=== PATIENT | female | born 1970 | race African-American/Black ===

== ENCOUNTER → 2019-05-01 12:19 | Outpatient (CLI) | payer BC ==
[~2019-05-01 12:19] MED LIST: ALBUTEROL SULF8.5 GM INH; ALBUTEROL2.5 MG/3 M INH; BREO ELLIPTA 11 EACH; CATAPRES TTS-20.2 MG TRANSDERM; CELEXA20 MG PO; COZAAR100 MG PO; FERROUS SULFAT325 MG PO; MUCINEX DM ER1 EAC1 PO; NORVASC10 MG PO; OMNICEF300 MG PO; PREDNISONE5 MG; SINGULAIR10 MG PO; TESSALON PERLE100 MG PO; TOPROL XL100 MG PO; VIBRAMYCIN 100100 MG PO
[2019-05-19 14:01] VITALS: BMI 54.7
== END | disposition home or self-care (01) ==
LOC: D.CT 12:19
PROVIDERS: ATTEND Nurse Practitioner Family
DX: I65.29 Occlusion and stenosis of unspecified carotid artery (principal)

== ENCOUNTER 2019-05-11 17:28 | Emergency (ER) | payer BC ==
[2019-05-11 17:36] VITALS: Wt 158.6 kg
[2019-05-11 18:12] LABS: BASOPHILS 0.3 % (0-2); HEMATOCRIT 33.5 % (36.0-48.0); HEMOGLOBIN 10.7 g/dL (12-16); IMMATURE GRANULOCYTES 0.4 % (0-5); LYMPHOCYTES 12.8 % (15-50); MCH 29.5 pg (26.0-34.0); MCHC 31.9 g/dL (31.0-37.0); MCV 92.3 fL (80.0-100.0); MEAN PLATELET VOLUME 8.9 fL (7.4-10.4); MONOCYTES 11.9 % (2-11); NEUTROPHILS 73.6 % (40-80); PLATELET COUNT 325 10x3/uL (130-400); RBC 3.63 10x6/uL (4.00-5.40); RDW 15.1 % (11.5-14.5); WBC 7.8 10x3/uL (4.8-10.8)
[2019-05-11 18:23] LABS: CALC OSMOLALITY 274 mosm/kg (275-300); CALCIUM 7.9 mg/dL (8.5-10.1); CARBON DIOXIDE 26.8 mmol/L (21.0-32.0); CHLORIDE - SERUM 105 mmol/L (98-107); CREATININE - SERUM 0.9 mg/dL (0.6-1.3); GLUCOSE 95 mg/dL (74-106); POTASSIUM - SERUM 3.7 mmol/L (3.5-5.1); SODIUM 138 mmol/L (136-145); UREA NITROGEN 11 mg/dL (7-18); eGFR NON AFRICAN AMERICAN 71 mL/min (90-120)
[2019-05-11 18:40] LABS: ALKALINE PHOSPHATASE 94 U/L (46-116); ALT (SGPT) 22 U/L (10-68); BILIRUBIN - TOTAL 0.41 mg/dL (0.2-1.3); CKMB 0.2 U/L (0.0-3.6); CREATINE KINASE 108 UL (21-215); MAGNESIUM - SERUM 1.7 mg/dL (1.8-2.4); PROTEIN - SERUM 7.5 g/dL (6.4-8.2)
[2019-05-11 19:24] LABS: APPEARANCE CLEAR (CLEAR); BILIRUBIN NEGATIVE (NEGATIVE); COLOR YELLOW (YELLOW); GLUCOSE NEGATIVE (NEGATIVE); KETONE NEGATIVE (NEGATIVE); NITRITE NEGATIVE (NEGATIVE); PROTEIN NEGATIVE (NEGATIVE)
[2019-05-11] MEDS ORDERED: NORVASC10 MG PO (19:26)
[2019-05-11 19:27] LABS: BACTERIA FEW /hpf (NEGATIVE); EPITHELIAL CELLS 0-5 /hpf (0-5); RED CELLS - URINE 25-50 /hpf (0-5); WHITE CELLS - URINE OCC /hpf (NEGATIVE)
[2019-05-11 21:31] VITALS: BP 177/82
[2019-05-12] MEDS ORDERED: TOPROL XL100 MG PO (14:49)
[2019-05-12] MEDS ORDERED: COZAAR100 MG PO (14:50)
[2019-05-12] MEDS ORDERED: CELEXA20 MG PO (14:51)
[2019-05-12] MEDS ORDERED: FERROUS SULFAT325 MG PO (14:53)
[2019-05-19 14:01] VITALS: Wt 158.6 kg
== END 2019-05-11 21:41 | disposition home or self-care (01) ==
LOC: D.ER 17:28
PROVIDERS: Family Medicine
DX: R42 Dizziness and giddiness (principal); D64.9 Anemia, unspecified; I10 Essential (primary) hypertension; E83.42 Hypomagnesemia; E07.9 Disorder of thyroid, unspecified

== ENCOUNTER 2019-05-12 13:54 | Inpatient (IN) | payer BC ==
[~2019-05-12] VITALS: Ht 170.2 cm; Wt 158.3 kg
[~2019-05-12 13:54] MED LIST changes: -ALBUTEROL SULF8.5 GM INH; -ALBUTEROL2.5 MG/3 M INH; -BREO ELLIPTA 11 EACH; -CATAPRES TTS-20.2 MG TRANSDERM; -CELEXA20 MG PO; -COZAAR100 MG PO; -FERROUS SULFAT325 MG PO; -MUCINEX DM ER1 EAC1 PO; -OMNICEF300 MG PO; -PREDNISONE5 MG; -SINGULAIR10 MG PO; -TESSALON PERLE100 MG PO; -TOPROL XL100 MG PO; -VIBRAMYCIN 100100 MG PO
[2019-05-12] MEDS ORDERED: TOPROL XL100 MG PO (14:49)
[2019-05-12] MEDS ORDERED: COZAAR100 MG PO (14:50)
[2019-05-12] MEDS ORDERED: CELEXA20 MG PO (14:51)
[2019-05-12 14:52] LABS: HEMATOCRIT 31.6 % (36.0-48.0); HEMOGLOBIN 10.2 g/dL (12-16); MCH 29.4 pg (26.0-34.0); MCHC 32.3 g/dL (31.0-37.0); MCV 91.1 fL (80.0-100.0); MEAN PLATELET VOLUME 9.1 fL (7.4-10.4); PLATELET COUNT 270 10x3/uL (130-400); RBC 3.47 10x6/uL (4.00-5.40); RDW 15.5 % (11.5-14.5); WBC 6.9 10x3/uL (4.8-10.8)
[2019-05-12] MEDS ORDERED: FERROUS SULFAT325 MG PO (14:53)
[2019-05-12 14:57] VITALS: BP 153/79
[2019-05-12 15:10] LABS: ALBUMIN 2.9 g/dL (3.4-5.0); ANION GAP 14.6 mmol/L (8-16); BILIRUBIN - TOTAL 0.92 mg/dL (0.2-1.3); C-REACTIVE PROTEIN 7.7 mg/dL (0.0-0.9); CALCIUM 7.8 mg/dL (8.5-10.1); CARBON DIOXIDE 23.9 mmol/L (21.0-32.0); CREATININE - SERUM 1.1 mg/dL (0.6-1.3); POTASSIUM - SERUM 3.5 mmol/L (3.5-5.1); PROTEIN - SERUM 7.1 g/dL (6.4-8.2)
[2019-05-12 15:51] LABS: LYMPHOCYTES 11 % (15-50); MONOCYTES 15 % (2-11); NEUTROPHILS 67 % (40-80); PLATELET ESTIMATE NORMAL
[2019-05-12 15:52] LABS: HYPOCHROMASIA 1+; PLATELET MORPHOLOGY GIANT PLTS PRESENT; ROULEAUX 1+
[2019-05-12 15:53] VITALS: BP 153/79; BMI 54.8
[2019-05-12 16:03] LABS: APPEARANCE CLEAR (CLEAR); BILIRUBIN NEGATIVE (NEGATIVE); COLOR YELLOW (YELLOW); GLUCOSE NEGATIVE (NEGATIVE); KETONE NEGATIVE (NEGATIVE); NITRITE NEGATIVE (NEGATIVE); PROTEIN NEGATIVE (NEGATIVE); UROBILINOGEN NORMAL (NORMAL)
[2019-05-12 16:04] LABS: BACTERIA FEW /hpf (NEGATIVE); RED CELLS - URINE 0-5 /hpf (0-5); WHITE CELLS - URINE 0-5 /hpf (NEGATIVE)
[2019-05-12 17:33] VITALS: BP 144/67
--- NOTE | 2019-05-12 20:02 | NUR ---
CONTINUES TO REST WITH EYES CLOSED BED LOW AND LOCKED CALL LIGHT IN REACH CONTINUE TO OBSERVE DROPLET ISO LATION
[2019-05-12 20:34] VITALS: BP 159/80
[2019-05-13 01:10] VITALS: BP 126/70
--- NOTE | 2019-05-13 01:40 | NUR ---
IV TO LEFT HAND CAME OUT CATH INTACT CLEANED AND PLACED BANDAGE
[2019-05-13 05:13] LABS: BASOPHILS 0 % (0-2); EOSINOPHILS 0 % (0-7); HEMOGLOBIN 10.9 g/dL (12-16); MCH 29.3 pg (26.0-34.0); MCHC 32.1 g/dL (31.0-37.0); MCV 91.4 fL (80.0-100.0); MEAN PLATELET VOLUME 9.1 fL (7.4-10.4); MONOCYTES 7.2 % (2-11); NEUTROPHILS 74.8 % (40-80); PLATELET COUNT 278 10x3/uL (130-400); RBC 3.72 10x6/uL (4.00-5.40); RDW 15.1 % (11.5-14.5)
[2019-05-13 05:27] LABS: WBC 3.9 10x3/uL (4.8-10.8)
[2019-05-13 05:35] LABS: ANION GAP 12.7 mmol/L (8-16); CALCIUM 8.1 mg/dL (8.5-10.1); CARBON DIOXIDE 25.9 mmol/L (21.0-32.0); CREATININE - SERUM 1.1 mg/dL (0.6-1.3); MAGNESIUM - SERUM 1.9 mg/dL (1.8-2.4); PHOSPHOROUS 3.3 mg/dL (2.5-4.9); POTASSIUM - SERUM 3.6 mmol/L (3.5-5.1)
[2019-05-13 05:58] VITALS: BP 137/66
--- NOTE | 2019-05-13 05:58 | NUR ---
I have reviewed this patient and I concur with the Shift Assessment completed by the Licensed Practical Nurse today this shift.
--- NOTE | 2019-05-13 07:38 | NUR ---
PATIENT IS RESTING ON HER BACK IN BED. SHE DENIES ANY NEEDS AT THIS TIME. SHE JUST RECIEVED HER BREATHING TREATMENT.
[2019-05-13 09:31] VITALS: BP 152/76
--- NOTE | 2019-05-13 10:59 | NUR ---
PATIENT IS RESTING QUIETLY AT THIS TIME. SHE WOULD LIKE TO GET UP AND TAKE A SHOWER. DENIES ANY OTHER NEEDS AT THIS TIME.
[2019-05-13 12:00] VITALS: BP 164/83
[2019-05-13 16:00] VITALS: BP 151/65
--- NOTE | 2019-05-13 19:20 | NUR ---
CONT TO OBSERVE DROPLET ISOLATION AWAKE AND ALERT LUNGS DEMINISHED DENIES NEEDS AT THIS TIME
[2019-05-13 20:00] VITALS: BP 177/80
[2019-05-14] VITALS: BP 184/96
--- NOTE | 2019-05-14 03:20 | NUR ---
I have reviewed this patient and I concur with the Shift Assessment completed by the Licensed Practical Nurse today this shift.
[2019-05-14 04:00] VITALS: BP 175/84
[2019-05-14 06:54] LABS: BASOPHILS 0 % (0-2); EOSINOPHILS 0 % (0-7); HEMATOCRIT 35.6 % (36.0-48.0); HEMOGLOBIN 11.3 g/dL (12-16); IMMATURE GRANULOCYTES 0.3 % (0-5); LYMPHOCYTES 11.6 % (15-50); MCH 29.1 pg (26.0-34.0); MCHC 31.7 g/dL (31.0-37.0); MCV 91.8 fL (80.0-100.0); MEAN PLATELET VOLUME 9.4 fL (7.4-10.4); MONOCYTES 7.1 % (2-11); PLATELET COUNT 329 10x3/uL (130-400); RBC 3.88 10x6/uL (4.00-5.40); RDW 15.3 % (11.5-14.5)
[2019-05-14 07:09] LABS: ANION GAP 11.2 mmol/L (8-16); CALCIUM 8.3 mg/dL (8.5-10.1); CARBON DIOXIDE 27.5 mmol/L (21.0-32.0); CREATININE - SERUM 0.9 mg/dL (0.6-1.3); MAGNESIUM - SERUM 1.9 mg/dL (1.8-2.4); POTASSIUM - SERUM 3.7 mmol/L (3.5-5.1)
[2019-05-14 07:10] LABS: PHOSPHOROUS 2.4 mg/dL (2.5-4.9)
[2019-05-14 09:55] VITALS: BP 153/80
[2019-05-14 13:34] VITALS: BP 177/59
--- NOTE | 2019-05-14 13:54 | NUR ---
PATIENT IS SITTING UP IN BED. REPORTS FEELING BETTER NOW THEN SHE DID THIS MORNING. DENIES ANY NEEDS AT THIS TIME.
--- NOTE | 2019-05-14 14:57 | MORECARE ---
CASE MANAGEMENT DISCHARGE SUMMARY PATIENT: JHONNY PAIGE UNIT: [id number] ADM DATE: 05/12/19 AGE: 48 : 72 SEX: F ROOM/BED: D.5543 AUTHOR: TALAT,DOC PHYSICIAN: REFERRING PHYSICIAN: ERIC VIEYRA MD DATE OF SERVICE: 05/14/19 Discharge Plan Patient Name: JHONNY PAIGE Facility: [facility]:[place] : 1970 Planned Disposition: Home Anticipated Discharge Date: 05/16/19 Discharge Date: Expected LOS: 4 Initial Reviewer: [email or web address] Initial Review Date: 05/12/2019 Generated: 05/14/19 3:56 pm Comments DCP- Discharge Planning Updated by [email or web address]: Makayla Waddell on 05/14/19 1:[address] DC PLAN: Return home independently. ANTICIPATED DC NEEDS: Denied known dc needs. CM met with patient to complete initial dc planning assessment. CM educated patient on the CM role and verbal consent given by patient to complete assessment. CM verified patient's address, phone number, and emergency contact phone numbers. Patient lives at home and her adult children live with her. At discharge patient plans to return home and feels this is a safe discharge. 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 CM discussed availability of home health, rehab services, and medical equipment. Patient denied known discharge needs at this time. CM will continue to follow and will assist as needed with dc plans/needs. Makayla Waddell RN, [facility] DCPIA - Discharge Planning Initial Assessment Updated by [email or web address]: Makayla Waddell on 05/14/19 2:49 pm * Is the patient Alert and Oriented? Yes * How many steps to enter\exit or inside your home? none * PCP Dr. Vieyra * Pharmacy [facility] * Preadmission Environment Home with Family * ADLs Independent * Equipment None * List name and contact numbers for known caregivers / representatives who currently or will assist patient after discharge: Miguel Angel or Lily Maddox * Verbal permission to speak to the caregivers and representatives has been obtained from the patient. Yes * Community resources currently utilized None * Additional services required to return to the preadmission environment? No * Can the patient safely return to the preadmission environment? Yes * Has this patient been hospitalized within the prior 30 days at any hospital? No Patient Name: JHONNY PAIGE Page 60414 at 1457 All edits/amendments must be made on the electronic document DICTATION DATE: 05/14/191455 FIRST BEATER: CADY 05/14/191455 RPT#: [id number] DC DATE: STATUS: ADM IN [facility] [address] [place] [address] END OF REPORT
--- NOTE | 2019-05-14 16:01 | NUR ---
PATIENT IS ALERT AND AWAKE. IV INFUSING ORDERED.
[2019-05-14 17:30] VITALS: BP 177/84
--- NOTE | 2019-05-14 18:38 | NUR ---
SITTING UP IN BED. DRY COUGH IS PERSISTING. DENIES ANY NEEDS AT THIS TIME.
--- NOTE | 2019-05-14 19:42 | NUR ---
TALKED TO BELEM AND HE ORDERED A SMALL EVENING DOSE OF B/P MEDICATION BECAUSE HER B/P HAS BEEN CONSISTANTLY HIGH.
[2019-05-14 20:00] VITALS: BP 132/72
[2019-05-15 04:00] VITALS: BP 122/63
[2019-05-15 05:52] LABS: BASOPHILS 0.1 % (0-2); EOSINOPHILS 0 % (0-7); HEMATOCRIT 32.5 % (36.0-48.0); HEMOGLOBIN 10.4 g/dL (12-16); IMMATURE GRANULOCYTES 0.3 % (0-5); LYMPHOCYTES 18.4 % (15-50); MCH 29.3 pg (26.0-34.0); MCV 91.5 fL (80.0-100.0); MEAN PLATELET VOLUME 9.5 fL (7.4-10.4); MONOCYTES 10.9 % (2-11); NEUTROPHILS 70.3 % (40-80); PLATELET COUNT 331 10x3/uL (130-400); RBC 3.55 10x6/uL (4.00-5.40); RDW 15.2 % (11.5-14.5); WBC 11.5 10x3/uL (4.8-10.8)
[2019-05-15 06:20] LABS: ANION GAP 11.6 mmol/L (8-16); CALCIUM 8.1 mg/dL (8.5-10.1); CARBON DIOXIDE 28.7 mmol/L (21.0-32.0); CREATININE - SERUM 0.9 mg/dL (0.6-1.3); MAGNESIUM - SERUM 1.8 mg/dL (1.8-2.4); PHOSPHOROUS 2.5 mg/dL (2.5-4.9); POTASSIUM - SERUM 3.3 mmol/L (3.5-5.1)
[2019-05-15 08:00] VITALS: BP 160/86
[2019-05-15 12:00] VITALS: BP 112/73
[2019-05-15 16:34] VITALS: BP 172/73
--- NOTE | 2019-05-15 17:30 | NUR ---
I have reviewed this patient and I concur with the Shift Assessment completed by the Licensed Practical Nurse today this shift.
--- NOTE | 2019-05-15 19:00 | NUR ---
EVENING ROUNDS COMPLETE. PT SITTING UP IN BED. NO SIGNS OF DISTRESS. AAOX4. PT DENIES ANY PAIN OR NEEDS AT THIS TIME. CL IN REACH, BED IN LOWEST POSITION.
[2019-05-15 20:00] VITALS: BP 195/89
[2019-05-15 21:00] VITALS: BP 195/89
[2019-05-16] VITALS (7 sets, daily range): BP systolic 149–175; BP diastolic 47–92
[2019-05-16 07:08] LABS: ANION GAP 12.9 mmol/L (8-16); CALCIUM 8.4 mg/dL (8.5-10.1); CARBON DIOXIDE 27.2 mmol/L (21.0-32.0); PHOSPHOROUS 3.1 mg/dL (2.5-4.9)
[2019-05-16 07:14] LABS: HEMATOCRIT 34.5 % (36.0-48.0); HEMOGLOBIN 11.3 g/dL (12-16); LYMPHOCYTES 15.4 % (15-50); MCH 29.8 pg (26.0-34.0); MCHC 32.8 g/dL (31.0-37.0); MEAN PLATELET VOLUME 9.9 fL (7.4-10.4); NEUTROPHILS 77.5 % (40-80); PLATELET COUNT 295 10x3/uL (130-400); RBC 3.79 10x6/uL (4.00-5.40); RDW 15.3 % (11.5-14.5)
[2019-05-16 07:18] LABS: POTASSIUM - SERUM 4.1 mmol/L (3.5-5.1)
[2019-05-16 07:21] LABS: WBC 7.6 10x3/uL (4.8-10.8)
--- NOTE | 2019-05-16 18:22 | NUR ---
I HAVE REVIEWED THIS PATIENT AND I CONCUR WITH THE SHIFT ASSESSMENT COMPLETED BY THE CONE EXAMINER TODAY THIS SHIFT
--- NOTE | 2019-05-16 21:16 | NUR ---
PT SITTING UP IN BED WATCHING TV. PT IS ALERT AND ORIENTED X4. NO S/S OF DISTRESS. PT DENIES ANY PAIN OR FURTHER NEEDS AT THIS TIME. BED LOW CALL LIGHT WITHIN REACH. WILL CONTINUE TO MONITOR.
--- NOTE | 2019-05-17 00:53 | NUR ---
PT RESTING IN BED WITH EYES CLOSED RR EVEN AND UNLABORED. NO S/S OF DISTRESS AT THIS TIME. BED LOW CALL LIGHT WITHIN REACH. WILL CONTINUE TO MONITOR.
--- NOTE | 2019-05-17 04:04 | NUR ---
I have reviewed this patient and I concur with the Shift Assessment completed by the Licensed Practical Nurse today this shift.
[2019-05-17 04:30] VITALS: BP 147/66
[2019-05-17 06:01] LABS: BASOPHILS 0.1 % (0-2); EOSINOPHILS 0 % (0-7); HEMATOCRIT 34.4 % (36.0-48.0); IMMATURE GRANULOCYTES 0.6 % (0-5); LYMPHOCYTES 13.9 % (15-50); MCH 29.3 pg (26.0-34.0); MCV 91.5 fL (80.0-100.0); MEAN PLATELET VOLUME 9.8 fL (7.4-10.4); MONOCYTES 7.9 % (2-11); NEUTROPHILS 77.5 % (40-80); PLATELET COUNT 316 10x3/uL (130-400); RBC 3.76 10x6/uL (4.00-5.40); RDW 15.2 % (11.5-14.5)
[2019-05-17 06:04] LABS: WBC 12.7 10x3/uL (4.8-10.8)
[2019-05-17 06:12] LABS: ANION GAP 9.4 mmol/L (8-16); CALCIUM 8.4 mg/dL (8.5-10.1); CARBON DIOXIDE 30.2 mmol/L (21.0-32.0); CREATININE - SERUM 0.9 mg/dL (0.6-1.3); MAGNESIUM - SERUM 2.1 mg/dL (1.8-2.4); POTASSIUM - SERUM 3.6 mmol/L (3.5-5.1)
--- NOTE | 2019-05-17 07:34 | NUR ---
PT AWAKE AND ORIENTED, RESTING IN BED. NO COMPLAINTS/CONCERNS OR QUESTIONS AT THIS TIME. CL IN REACH, SRX2. NO FAMILY PRESENT AT BEDSIDE.
[2019-05-17 07:53] VITALS: BP 133/64
[2019-05-17 11:27] VITALS: BP 171/90
--- NOTE | 2019-05-17 14:32 | NUR ---
PT AWAKE AND ORIENTED ALL DAY. NOW STARTING TO SOUND MORE TIGHT IN HER AIRWAY. PT HAS EXPRESSED MULTIPLE TIMES HOW SHE CAN'T WAIT TO GO HOME, BUT NOW STATES SHE THINKS SHE CAN WAIT D/T HER FEELING WORSE THIS AFTERNOON THAN SHE DID THIS MORNING. CL IN REACH, SRX2. NO FAMILY PRESENT AT BEDSIDE.
[2019-05-17 15:44] VITALS: BP 150/81
--- NOTE | 2019-05-17 19:15 | NUR ---
RECEIVED REPORT, WILL ASSUME CARE OF PT, PT STATES IV FLUIDS WERE DC, SO I CHECKED AND THEY WERE, SO I SL-IV, ASKING FOR ICE AND ICEWATER(PROVIDED), DENIES ANY OTHER NEEDS AT THIS TIME, BED IS LOW, SRX2, CALL LIGHT IN REACH, WILL CONTINUE PLAN OF CARE
[2019-05-17 20:00] VITALS: BP 162/72
[2019-05-18] VITALS: BP 170/82
--- NOTE | 2019-05-18 03:08 | NUR ---
I have reviewed this patient and I concur with the Shift Assessment completed by the Licensed Practical Nurse today this shift.
[2019-05-18 04:00] VITALS: BP 147/85
[2019-05-18 09:33] VITALS: BP 185/66
--- NOTE | 2019-05-18 10:47 | NUR ---
PT IN SHOWER CURRENTLY. IV WRAPPED.
[2019-05-18 11:13] LABS: BASOPHILS 0.1 % (0-2); EOSINOPHILS 0 % (0-7); HEMATOCRIT 38.2 % (36.0-48.0); HEMOGLOBIN 12.2 g/dL (12-16); IMMATURE GRANULOCYTES 1.2 % (0-5); LYMPHOCYTES 11.2 % (15-50); MCH 29.5 pg (26.0-34.0); MCHC 31.9 g/dL (31.0-37.0); MCV 92.3 fL (80.0-100.0); MEAN PLATELET VOLUME 9.7 fL (7.4-10.4); MONOCYTES 8.3 % (2-11); NEUTROPHILS 79.2 % (40-80); PLATELET COUNT 379 10x3/uL (130-400); RBC 4.14 10x6/uL (4.00-5.40); RDW 15.1 % (11.5-14.5)
[2019-05-18 11:22] LABS: ANION GAP 9.2 mmol/L (8-16); CALCIUM 8.5 mg/dL (8.5-10.1); CARBON DIOXIDE 30.5 mmol/L (21.0-32.0); POTASSIUM - SERUM 3.7 mmol/L (3.5-5.1)
[2019-05-18 11:28] LABS: WBC 16.2 10x3/uL (4.8-10.8)
--- NOTE | 2019-05-18 14:16 | NUR ---
I have reviewed this patient and I concur with the Shift Assessment completed by the Licensed Practical Nurse today this shift.
[2019-05-18 20:00] VITALS: BP 182/78
--- NOTE | 2019-05-18 21:19 | NUR ---
HS MEDS GIVEN WITH FRESH ICE WATER. DENIES PAIN OR NEEDS. VISITORS AT BED SIDE.
[2019-05-19 00:30] VITALS: BP 162/76
--- NOTE | 2019-05-19 02:51 | NUR ---
I have reviewed this patient and I concur with the Shift Assessment completed by the Licensed Practical Nurse today this shift.
--- NOTE | 2019-05-19 03:44 | NUR ---
RESTING WITH EYES CLOSED, RESPERATIONS EVEN, NO S/S DISTRESS NOTED.
[2019-05-19 04:30] VITALS: BP 158/78
[2019-05-19 06:02] LABS: ANION GAP 7.7 mmol/L (8-16); CALCIUM 8.1 mg/dL (8.5-10.1); CARBON DIOXIDE 33.7 mmol/L (21.0-32.0); CREATININE - SERUM 0.9 mg/dL (0.6-1.3); MAGNESIUM - SERUM 2.1 mg/dL (1.8-2.4); POTASSIUM - SERUM 3.4 mmol/L (3.5-5.1)
[2019-05-19 06:12] LABS: BASOPHILS 0.1 % (0-2); EOSINOPHILS 0.2 % (0-7); HEMATOCRIT 36.1 % (36.0-48.0); HEMOGLOBIN 11.6 g/dL (12-16); IMMATURE GRANULOCYTES 1.3 % (0-5); LYMPHOCYTES 24.2 % (15-50); MCH 29.7 pg (26.0-34.0); MCHC 32.1 g/dL (31.0-37.0); MCV 92.6 fL (80.0-100.0); MEAN PLATELET VOLUME 10.2 fL (7.4-10.4); MONOCYTES 14.4 % (2-11); NEUTROPHILS 59.8 % (40-80); PLATELET COUNT 390 10x3/uL (130-400); RDW 15.5 % (11.5-14.5); WBC 16.9 10x3/uL (4.8-10.8)
--- NOTE | 2019-05-19 07:26 | NUR ---
PATIENT IS RESTING QUIETLY AT THIS TIME. SHE DENIES ANY NEEDS AT THIS TIME.
[2019-05-19 09:04] VITALS: BP 168/85
--- NOTE | 2019-05-19 09:07 | NUR ---
DR DON LOCK. HE WANTS CASE MANAGEMENT TO SET UP A NEBULIZER AT HOME. WHEN PATIENT GETS UP AND WALKS IN THE STEINER TODAY , WILL CHECK HER O2 LEVEL. STOPPING TAMIFLU, PATIENT REPORTS THAT SHE STARTED IT LAST SUNDAY. WILL CALL PHARMACY.
--- NOTE | 2019-05-19 09:11 | NUR ---
PATIENT WILL HAVE A WALK TEST TODAY. ASKED CASE MANAGEMENT ABOUT REQUIREMENTS FOR PATIENT TO HAVE NEBULIZER ON DISCHARGE.
[2019-05-19 13:54] VITALS: BP 154/81
[2019-05-19 14:01] VITALS: Ht 170.2 cm; Wt 158.3 kg
--- NOTE | 2019-05-19 16:27 | MORECARE ---
CASE MANAGEMENT DISCHARGE SUMMARY PATIENT: JHONNY PAIGE UNIT: [id number] ADM DATE: 05/12/19 AGE: 48 : 72 SEX: F ROOM/BED: D.8065 AUTHOR: TALAT,DOC PHYSICIAN: REFERRING PHYSICIAN: ERIC VIEYRA MD DATE OF SERVICE: 05/19/19 Discharge Plan Patient Name: JHONNY PAIGE Facility: [facility]:[place] : 1970 Planned Disposition: Home Anticipated Discharge Date: 05/20/19 Discharge Date: Expected LOS: 8 Initial Reviewer: [email or web address] Initial Review Date: 05/12/2019 Generated: 05/19/19 5:27 pm DCP- Discharge Planning Updated by [email or web address]: Makayla Waddell on 05/14/19 1:[address] DC PLAN: Return home independently. ANTICIPATED DC NEEDS: Denied known dc needs. CM met with patient to complete initial dc planning assessment. CM educated patient on the CM role and verbal consent given by patient to complete assessment. CM verified patient's address, phone number, and emergency contact phone numbers. Patient lives at home and her adult children live with her. At discharge patient plans to return home and feels this is a safe discharge. 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 CM discussed availability of home health, rehab services, and medical equipment. Patient denied known discharge needs at this time. CM will continue to follow and will assist as needed with dc plans/needs. Makayla Waddell RN, [facility] DCPIA - Discharge Planning Initial Assessment Updated by [email or web address]: Makayla Waddell on 05/14/19 2:49 pm * Is the patient Alert and Oriented? Yes * How many steps to enter\exit or inside your home? none * PCP Dr. Vieyra * Pharmacy [facility] * Preadmission Environment Home with Family * ADLs Independent * Equipment None * List name and contact numbers for known caregivers / representatives who currently or will assist patient after discharge: Miguel Angel or Lily Maddox * Verbal permission to speak to the caregivers and representatives has been obtained from the patient. Yes * Community resources currently utilized None * Additional services required to return to the preadmission environment? No * Can the patient safely return to the preadmission environment? Yes * Has this patient been hospitalized within the prior 30 days at any hospital? No External Providers External Provider: Niurka Next Contact Date: 05/19/2019 Service Request Date: Service Type: Resolution: Reviewer: Comments: Coverage Notice Reviewer: [email or web address] Jonathan Manzanares Notice Issued Date-Time: 05/19/2019 13:55 Notice Type: Patient Choice Letter Notice Delivered To: Patient Relationship to Patient: Assistant Health Educator Name: Delivery Method: HAND - Hand Delivered Pao Days: Prior Verbal Notification: Recipient Understood Notice: Yes Recipient Signature: Yes Med Rec Note Co-signed by Attending: Coverage Notice Comment: CASI Last DP export: 05/14/19 1:57 Patient Name: JHONNY PAIGE Page [id number] at 1627 All edits/amendments must be made on the electronic document DICTATION DATE: 05/19/191626 IRON AND STEEL WORK SUPERVISOR: CADY 05/19/191626 RPT#: [id number] UT DATE: STATUS: ADM IN [facility] [address] [place] [address] END OF REPORT
--- NOTE | 2019-05-19 16:36 | MORECARE ---
CASE MANAGEMENT DISCHARGE SUMMARY PATIENT: JHONNY PAIGE UNIT: [id number] ADM DATE: 05/12/19 AGE: 48 : 72 SEX: F ROOM/BED: D.7795 AUTHOR: TALAT,DOC PHYSICIAN: REFERRING PHYSICIAN: ERIC VIEYRA MD DATE OF SERVICE: 05/19/19 Discharge Plan Patient Name: JHONNY PAIGE Facility: [facility]:[place] : 1970 Planned Disposition: Home Anticipated Discharge Date: 05/20/19 Discharge Date: Expected LOS: 8 Initial Reviewer: [email or web address] Initial Review Date: 05/12/2019 Generated: 05/19/19 5:36 pm Comments DCP- Discharge Planning Updated by [email or web address]: Andry Manzanares on 05/19/19 3:[address] Patient Name: JHONNY PAIGE Encounter No: [id number] : 1970 Primary Insurance: [employer] [facility] Anticipated DC Date: 05-20-2019 Planned Disposition: Home DCP follow-up note: CM RECEIVED ORDER FOR NEBULIZER. CM SPOKE TO PT IN ROOM, DISCUSSED AVAILABLE PROVIDERS, OFFERED LISTING OF PROVIDERS, PT WANTS TO USE THE ONE THAT JEY FRAZIER WORKED AT. [facility]. CHOICE SIGNED. PT DENIES NEEDS OF HOME HEALTH, REHAB SERVICES OR MEDICAL EQUIPMENT. CM SPOKE TO DR. FRANCIS AND RECEIVED CLAIRIFICATION OF DIAGNOSIS, REACTIVE AIRWAY DISEASE. CM CALLED [facility]. [phone], SPOKE TO HARDEEP WHO WILL PROCESS ORDER FOR NEBULIZER. IF ALL IS APPROVED, WILL DELIVER NEBULIZER TO ROOM FOR PT'S DISCHARGE TOMORROW. CM FAXED ORDER AND REFERRAL TO [facility] AT [phone]. IF APPROVED BY INSURANCE, [facility] TO DELIVER NEBULIZER TO PT'S HOSPITAL ROOM 05-20-19 FOR DISCHARGE HOME. CM TO FOLLOW AND ASSIST IF NEEDED. Andry Manzanares, CASE MANAGEMENT DCP- Discharge Planning Updated by [email or web address]: Makayla Waddell on 05/14/19 1:[address] DC PLAN: Return home independently. ANTICIPATED DC NEEDS: Denied known dc needs. CM met with patient to complete initial dc planning assessment. CM educated patient on the CM role and verbal consent given by patient to complete assessment. CM verified patient's address, phone number, and emergency contact phone numbers. Patient lives at home and her adult children live with her. At discharge patient plans to return home and feels this is a safe discharge. 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 CM discussed availability of home health, rehab services, and medical equipment. Patient denied known discharge needs at this time. CM will continue to follow and will assist as needed with dc plans/needs. Makayla Waddell RN, [facility] DCPIA - Discharge Planning Initial Assessment Updated by [email or web address]: Makayla Waddell on 05/14/19 2:49 pm * Is the patient Alert and Oriented? Yes * How many steps to enter\exit or inside your home? none * PCP Dr. Vieyra * Pharmacy [facility] * Preadmission Environment Home with Family * ADLs Independent * Equipment None * List name and contact numbers for known caregivers / representatives who currently or will assist patient after discharge: Miguel Angel or Lily Maddox * Verbal permission to speak to the caregivers and representatives has been obtained from the patient. Yes * Community resources currently utilized None * Additional services required to return to the preadmission environment? No * Can the patient safely return to the preadmission environment? Yes * Has this patient been hospitalized within the prior 30 days at any hospital? No Coverage Notice Reviewer: [id number] - Andry Manzanares Notice Issued Date-Time: 05/19/2019 13:55 Notice Type: Patient Choice Letter Notice Delivered To: Patient Relationship to Patient: Commercial Announcer Name: Delivery Method: HAND - Hand Delivered Pao Days: Prior Verbal Notification: Recipient Understood Notice: Yes Recipient Signature: Yes Med Rec Note Co-signed by Attending: Coverage Notice Comment: CASI AVERY export: 05/19/19 3:27 Patient Name: JHONNY PAIGE Page [id number] at 1636 All edits/amendments must be made on the electronic document DICTATION DATE: 05/19/191635 HAND CLIPPER: CADY 05/19/191635 RPT#: [id number] DC DATE: STATUS: ADM IN [facility] [address] [place] [address] END OF REPORT
[2019-05-19 17:00] VITALS: BP 177/79
[2019-05-19 20:00] VITALS: BP 169/52
--- NOTE | 2019-05-19 20:00 | NUR ---
A&0 X 4. AMBULATES INDEPENDENTLY. 2.5L O2 IN USE VIA NC. SPO2 99%. PT DENIES USE OF O2 AT HOME AND REPORTS SHE TAKES O2 OFF FREQUENTLY. TITRATED O2 TO 1L. WILL CONTINUE TO MONITOR.
[2019-05-20] VITALS: BP 181/80
--- NOTE | 2019-05-20 03:52 | NUR ---
I have reviewed this patient and I concur with the Shift Assessment completed by the Licensed Practical Nurse today this shift.
[2019-05-20 04:00] VITALS: BP 183/95
[2019-05-20 05:33] LABS: BASOPHILS 0.1 % (0-2); EOSINOPHILS 0.1 % (0-7); HEMATOCRIT 35.3 % (36.0-48.0); HEMOGLOBIN 11.3 g/dL (12-16); IMMATURE GRANULOCYTES 1.4 % (0-5); MCH 29.3 pg (26.0-34.0); MCV 91.5 fL (80.0-100.0); MEAN PLATELET VOLUME 10.1 fL (7.4-10.4); MONOCYTES 11.8 % (2-11); NEUTROPHILS 73.6 % (40-80); PLATELET COUNT 361 10x3/uL (130-400); RBC 3.86 10x6/uL (4.00-5.40); RDW 15.4 % (11.5-14.5); WBC 14.2 10x3/uL (4.8-10.8)
[2019-05-20 05:51] LABS: ANION GAP 9.5 mmol/L (8-16); CALCIUM 8.3 mg/dL (8.5-10.1); CARBON DIOXIDE 31.3 mmol/L (21.0-32.0); POTASSIUM - SERUM 3.8 mmol/L (3.5-5.1)
--- NOTE | 2019-05-20 07:15 | NUR ---
PATIENT IS RESTING QUIETLY IN BED A THIS TIME. RECIEVED REPORT. SHE DENIES ANY NEEDS AT THIS TIME.
[2019-05-20 09:01] VITALS: BP 193/98
[2019-05-20] MEDS ORDERED: ALBUTEROL2.5 MG/3 M INH (09:21)
[2019-05-20] MEDS ORDERED: ALBUTEROL SULF8.5 GM INH (09:22)
[2019-05-20] MEDS ORDERED: BREO ELLIPTA 11 EACH (09:22)
[2019-05-20] MEDS ORDERED: PREDNISONE5 MG (09:23)
[2019-05-20] MEDS ORDERED: SINGULAIR10 MG PO (09:24)
[2019-05-20] MEDS ORDERED: MUCINEX DM ER1 EAC1 PO (09:24)
[2019-05-20] MEDS ORDERED: TESSALON PERLE100 MG PO (09:25)
[2019-05-20] MEDS ORDERED: CATAPRES TTS-20.2 MG TRANSDERM (10:35)
[2019-05-20] MEDS ORDERED: VIBRAMYCIN 100100 MG PO (10:36)
[2019-05-20] MEDS ORDERED: OMNICEF300 MG PO (10:36)
--- NOTE | 2019-05-20 12:24 | NUR ---
PATIENT HAS BEEN DISCHARGED. ALL DISCHARGE TEACHING HAS BEEN DONE AND PAPERS SIGNED. TELEMETRY IS OFF, NO IV. PATIENT RECIVED SAMPLES FROM DR OCHOA. ALL PATIENT BELONGINGS HAVE BEEN REMOVED FROM THE ROOM AND ARE GOING HOME WITH THE PATIENT.
--- NOTE | 2019-05-20 12:54 | NUR ---
CALLED KRISTOPHER AND REPORTED HIGH B/P. GAVE ONE DOSE OF MEDICATION FOR B/P ORDERED. PATIENT HAS BEEN DISCHARGED AND SHE IS WAITING FOR HER FAMILY TO COME PICK HER UP.
--- NOTE | 2019-05-21 08:26 | MORECARE ---
CASE MANAGEMENT DISCHARGE SUMMARY PATIENT: JHONNY PAIGE UNIT: [id number] ADM DATE: 05/12/19 AGE: 48 : 72 SEX: F ROOM/BED: D.5899 AUTHOR: TALAT,DOC PHYSICIAN: REFERRING PHYSICIAN: ERIC VIEYRA MD DATE OF SERVICE: 05/21/19 Discharge Plan Patient Name: JHONNY PAIGE Facility: [facility]:[place] : 1970 Planned Disposition: Home Anticipated Discharge Date: 05/20/19 Discharge Date: 05/20/2019 Expected LOS: 8 Initial Reviewer: [email or web address] Initial Review Date: 05/12/2019 Generated: 05/21/19 9:26 am Comments DCP- Discharge Planning Updated by [id number]: Andry Manzanares on 05/19/19 3:[address] Patient Name: JHONNY PAIGE Encounter No: [id number] : 1970 Primary Insurance: [employer] [facility] Anticipated DC Date: 05-20-2019 Planned Disposition: Home DCP follow-up note: CM RECEIVED ORDER FOR NEBULIZER. CM SPOKE TO PT IN ROOM, DISCUSSED AVAILABLE PROVIDERS, OFFERED LISTING OF PROVIDERS, PT WANTS TO USE THE ONE THAT JEY FRAZIER WORKED AT. [facility]. CHOICE SIGNED. PT DENIES NEEDS OF HOME HEALTH, REHAB SERVICES OR MEDICAL EQUIPMENT. CM SPOKE TO DR. FRANCIS AND RECEIVED CLAIRIFICATION OF DIAGNOSIS, REACTIVE AIRWAY DISEASE. CM CALLED [facility]. [phone], SPOKE TO HARDEEP WHO WILL PROCESS ORDER FOR NEBULIZER. IF ALL IS APPROVED, WILL DELIVER NEBULIZER TO ROOM FOR PT'S DISCHARGE TOMORROW. CM FAXED ORDER AND REFERRAL TO [facility] AT [phone]. IF APPROVED BY INSURANCE, [facility] TO DELIVER NEBULIZER TO PT'S HOSPITAL ROOM 05-20-19 FOR DISCHARGE HOME. CM TO FOLLOW AND ASSIST IF NEEDED. Andry Manzanares, CASE MANAGEMENT DCP- Discharge Planning Updated by [email or web address]: Makayla Waddell on 05/14/19 1:[address] DC PLAN: Return home independently. ANTICIPATED DC NEEDS: Denied known dc needs. CM met with patient to complete initial dc planning assessment. CM educated patient on the CM role and verbal consent given by patient to complete assessment. CM verified patient's address, phone number, and emergency contact phone numbers. Patient lives at home and her adult children live with her. At discharge patient plans to return home and feels this is a safe discharge. 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 CM discussed availability of home health, rehab services, and medical equipment. Patient denied known discharge needs at this time. CM will continue to follow and will assist as needed with dc plans/needs. Makayla Waddell RN, [facility] DCPIA - Discharge Planning Initial Assessment Updated by [email or web address]: Makayla Waddell on 05/14/19 2:49 pm * Is the patient Alert and Oriented? Yes * How many steps to enter\exit or inside your home? none * PCP Dr. Vieyra * Pharmacy [facility] * Preadmission Environment Home with Family * ADLs Independent * Equipment None * List name and contact numbers for known caregivers / representatives who currently or will assist patient after discharge: Miguel Angel or Lily Humphrey - * Verbal permission to speak to the caregivers and representatives has been obtained from the patient. Yes * Community resources currently utilized None * Additional services required to return to the preadmission environment? No * Can the patient safely return to the preadmission environment? Yes * Has this patient been hospitalized within the prior 30 days at any hospital? 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
== END 2019-05-20 14:31 | disposition home or self-care (01) | DRG 194 ==
LOC: D.M2 13:54
PROVIDERS: Family Medicine; Family Medicine Adult Medicine; ADMIT Family Medicine; ATTEND Family Medicine
DX: J10.00 Influenza due to other identified influenza virus with unspecified type of pneumonia (principal); I16.1 Hypertensive emergency; D64.9 Anemia, unspecified; K21.9 Gastro-esophageal reflux disease without esophagitis; E83.42 Hypomagnesemia

== ENCOUNTER → 2020-01-30 13:06 | Outpatient (CLI) | payer BC ==
[2019-05-19 14:01] VITALS: BMI 54.7
[~2020-01-30 13:06] MED LIST changes: +ALBUTEROL SULF8.5 GM INH; +ALBUTEROL2.5 MG/3 M INH; +BREO ELLIPTA 11 EACH; +CATAPRES TTS-20.2 MG TRANSDERM; +CELEXA20 MG PO; +COZAAR100 MG PO; +FERROUS SULFAT325 MG PO; +MUCINEX DM ER1 EAC1 PO; +OMNICEF300 MG PO; +PREDNISONE5 MG; +SINGULAIR10 MG PO; +TESSALON PERLE100 MG PO; +TOPROL XL100 MG PO; +VIBRAMYCIN 100100 MG PO
[2020-01-30 14:23] LABS: BASOPHILS 0.3 % (0-2); EOSINOPHILS 0.9 % (0-7); HEMOGLOBIN 11.8 g/dL (12-16); IMMATURE GRANULOCYTES 0.6 % (0-5); MCH 29.9 pg (26.0-34.0); MCHC 31.9 g/dL (31.0-37.0); MCV 93.7 fL (80.0-100.0); MEAN PLATELET VOLUME 9.2 fL (7.4-10.4); MONOCYTES 13.2 % (2-11); PLATELET COUNT 352 10x3/uL (130-400); RBC 3.95 10x6/uL (4.00-5.40); RDW 14.4 % (11.5-14.5); WBC 14.6 10x3/uL (4.8-10.8)
== END | disposition home or self-care (01) ==
LOC: D.LAB 13:06
PROVIDERS: ATTEND Internal Medicine Pulmonary Disease
DX: R06.00 Dyspnea, unspecified (principal)